=== PATIENT | female | born 2000 | race African-American/Black ===

== ENCOUNTER 2022-01-15 04:58 | Emergency (ER) | payer MEDICAID ==
[~2022-01-15] VITALS: Ht 160 cm; Wt 43.6 kg
[2022-01-15 05:01] VITALS: BP 123/83
[2022-01-15] MEDS ORDERED: KETOROLAC 30MG/ML VIAL IM ONE (06:45)
[2022-01-15] MEDS ORDERED: NAPR-1176 PO (07:24)
== END 2022-01-15 07:49 | disposition home or self-care (01) ==
LOC: ER 04:58
DX: S20.212A Contusion of left front wall of thorax, initial encounter (principal); W10.8XXA Fall (on) (from) other stairs and steps, initial encounter; Y93.89 Activity, other specified; Y92.89 Other specified places as the place of occurrence of the external cause; Y99.8 Other external cause status; Z88.0 Allergy status to penicillin
CPT/HCPCS: 71046; 81025; 96372; 99283; J1885